=== PATIENT | female | born 1965 | race Caucasian/White ===

== ENCOUNTER → 2022-04-30 | Outpatient (CLI) | payer OTHER ==
[~2022-04-30] MED LIST: ALBU90OI INH; ASPI325EC PO; AZIT250 PO; BUPR150ER PO; CETI10 PO; CLON.1 PO; DIPH50 PO; FLUO20 PO; FLUSAL2505 IH; FLUSAL5005 IH; GLIM4 PO; GLYB5 PO; GUAI600T33 PO; HYDACE10B PO; HYDCHL50 PO; LANS30EC PO; LORA.5 PO; LOSHYD PO; METF500 PO; METO100 PO; RANI150 PO; SENN187 PO; TENEX; TENEX PO; TRAZ100 PO; VALS80 PO; VITS AND SUPPS
[2022-04-30 20:37] LABS: Source, Urine Clean Catch
[2022-04-30 20:41] LABS: Appearance, Urine Clear (Clear); Bilirubin, Urine Neg (Neg); Blood, Urine Neg (Neg); Color, Urine Yellow (P-Yellow); Glucose Qualitative, Urine Neg (Neg); Ketones, Urine Neg (Neg); Leukocyte Esterase, Urine Neg (Neg); Nitrite, Urine Neg (Neg); Protein, Urine Neg (Neg); Urobilinogen, Urine NORM (Normal)
== END ==
LOC: EDSTATUS 09:55 → LAB RH 20:35
DX: M51.26 Other intervertebral disc displacement, lumbar region (principal); R32 Unspecified urinary incontinence; G89.4 Chronic pain syndrome
CPT/HCPCS: 81003

== ENCOUNTER 2023-07-11 08:53 | Emergency (ER) | payer OTHER ==
[~2023-07-11] VITALS: Ht 180.3 cm; Wt 111.1 kg
[~2023-07-11 08:53] MED LIST changes: +Bactrim Ds Tab1 EACH PO
[2023-07-11] MEDS ORDERED: OMEPRAZOLE20 M2 PO (10:16)
[2023-07-11] MEDS ORDERED: SPIR50 PO (10:16)
[2023-07-11] MEDS ORDERED: LOSA50 PO (10:17)
[2023-07-11] MEDS ORDERED: Budeprion Xl300 MG PO (10:17)
[2023-07-11] MEDS ORDERED: TOPI50 PO (10:17)
[2023-07-11] MEDS ORDERED: BUSP5 PO (10:18)
[2023-07-11] MEDS ORDERED: LYRICA PO (10:18)
[2023-07-11] MEDS ORDERED: BACL10 PO (10:19)
[2023-07-11] MEDS ORDERED: ZEBUTAL PO (10:20)
[2023-07-11] MEDS ORDERED: IBUP400 PO (10:20)
[2023-07-11] MEDS ORDERED: HYDROcodone 10-APAP 325 TAB PO ONE (10:35)
[2023-07-11] MEDS ORDERED: Cephalexin500 MG PO (10:52)
[2023-07-11] MEDS ORDERED: ULTRA-LIGHT RO1 EACH UD (10:54)
[2023-07-11 12:00] VITALS: BP 103/82
== END 2023-07-11 12:17 | disposition home or self-care (01) ==
LOC: ER 08:53
DX: S82.51XA Displaced fracture of medial malleolus of right tibia, initial encounter for closed fracture (principal); S82.401A Unspecified fracture of shaft of right fibula, initial encounter for closed fracture; L03.032 Cellulitis of left toe; E11.9 Type 2 diabetes mellitus without complications; J45.909 Unspecified asthma, uncomplicated; F11.90 Opioid use, unspecified, uncomplicated; I10 Essential (primary) hypertension; W01.0XXA Fall on same level from slipping, tripping and stumbling without subsequent striking against object, initial encounter; Z79.82 Long term (current) use of aspirin; Z79.84 Long term (current) use of oral hypoglycemic drugs; Z79.899 Other long term (current) drug therapy; Z88.5 Allergy status to narcotic agent; Z88.8 Allergy status to other drugs, medicaments and biological substances
CPT/HCPCS: 29515; 73562-RT; 73610; 99283-25; A9270

== ENCOUNTER 2023-07-12 07:58 | Emergency (ER) | payer OTHER ==
[~2023-07-12] VITALS: Ht 180.3 cm; Wt 118.4 kg
[~2023-07-12 07:58] MED LIST changes: +BACL10 PO; +BUSP5 PO; +Budeprion Xl300 MG PO; +Cephalexin500 MG PO; +IBUP400 PO; +LOSA50 PO; +LYRICA PO; +OMEPRAZOLE20 M2 PO; +SPIR50 PO; +TOPI50 PO; +ULTRA-LIGHT RO1 EACH UD; +ZEBUTAL PO
[2023-07-12] MEDS ORDERED: HYDROcodone 10-APAP 325 TAB PO ONE (09:25)
[2023-07-12 12:23] VITALS: BP 106/69
== END 2023-07-12 12:23 | disposition home or self-care (01) ==
LOC: ER 07:58
DX: S82.51XD Displaced fracture of medial malleolus of right tibia, subsequent encounter for closed fracture with routine healing (principal); S82.891D Other fracture of right lower leg, subsequent encounter for closed fracture with routine healing; S82.401D Unspecified fracture of shaft of right fibula, subsequent encounter for closed fracture with routine healing; W22.8XXA Striking against or struck by other objects, initial encounter; Z88.5 Allergy status to narcotic agent; Z88.8 Allergy status to other drugs, medicaments and biological substances; Z79.899 Other long term (current) drug therapy; G43.909 Migraine, unspecified, not intractable, without status migrainosus; I10 Essential (primary) hypertension; E11.9 Type 2 diabetes mellitus without complications
CPT/HCPCS: 29505; 73502; 73610; 99283-25; A9270

== ENCOUNTER 2023-11-07 04:29 | Emergency (ER) | payer OTHER ==
[~2023-11-07] VITALS: Ht 177.8 cm; Wt 120.2 kg
[2023-11-07] MEDS ORDERED: FentaNYL Citrate 50 MCG/ML 2 ML Injection IV PRN (05:20)
[2023-11-07] MEDS ORDERED: NS 1,000 ML IV ONE (07:38)
[2023-11-07] MEDS ORDERED: Propofol 10mg/ml 20 ml Vial (Procedural) IV SCH (07:45)
[2023-11-07] MEDS ORDERED: NS 1,000 ML IV SCH (08:15)
[2023-11-07] MEDS ORDERED: OXAYDO5 M1 PO (10:39)
[2023-11-07] MEDS ORDERED: ONDA4ODT MM (10:39)
[2023-11-07 11:45] VITALS: BP 105/69
== END 2023-11-07 12:50 | disposition home or self-care (01) ==
LOC: ER 04:29
DX: S82.842A Displaced bimalleolar fracture of left lower leg, initial encounter for closed fracture (principal); W18.30XA Fall on same level, unspecified, initial encounter; Z88.5 Allergy status to narcotic agent; Z88.8 Allergy status to other drugs, medicaments and biological substances; Z79.899 Other long term (current) drug therapy; G43.909 Migraine, unspecified, not intractable, without status migrainosus; I10 Essential (primary) hypertension; E11.9 Type 2 diabetes mellitus without complications
CPT/HCPCS: 27810; 73590; 73600; 73610; 96374; 99152; 99284-25; J2704; J3010; J7030

== ENCOUNTER 2024-03-22 14:11 | Emergency (ER) | payer OTHER ==
[~2024-03-22] VITALS: Ht 180.3 cm; Wt 119.3 kg
[~2024-03-22 14:11] MED LIST changes: +ONDA4ODT MM; +OXAYDO5 M1 PO
[2024-03-22 14:22] VITALS: BP 146/88
[2024-03-22] MEDS ORDERED: MONDOXYNE NL100 MG PO (14:29)
== END 2024-03-22 14:28 | disposition home or self-care (01) ==
LOC: ER 14:11
DX: E11.621 Type 2 diabetes mellitus with foot ulcer (principal); L97.519 Non-pressure chronic ulcer of other part of right foot with unspecified severity; G43.909 Migraine, unspecified, not intractable, without status migrainosus; I10 Essential (primary) hypertension; E11.9 Type 2 diabetes mellitus without complications; J45.909 Unspecified asthma, uncomplicated; Z79.899 Other long term (current) drug therapy; Z88.5 Allergy status to narcotic agent; Z88.8 Allergy status to other drugs, medicaments and biological substances
CPT/HCPCS: 99282